=== PATIENT | male | born 1995 | race Two or more races ===

== ENCOUNTER 2019-02-28 19:01 | Emergency (ER) | payer BC, OTHER ==
[2019-02-28] MEDS ORDERED: Ondansetron 4 MG Tab.DIS PO ONE (19:36)
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
== END 2019-02-28 21:02 | disposition home or self-care (01) ==
LOC: MW.ED 19:01
DX: S06.0X9A Concussion with loss of consciousness of unspecified duration, initial encounter (principal); S02.2XXA Fracture of nasal bones, initial encounter for closed fracture; H57.12 Ocular pain, left eye; Y04.0XXA Assault by unarmed brawl or fight, initial encounter
CPT/HCPCS: 70450; 70486; 99284; A9270; 99283